=== PATIENT | female | born 1990 | race Caucasian/White ===

== ENCOUNTER 2020-04-06 14:35 | Outpatient (CLI) | payer OTHER, MEDICAID, SELFPAY ==
[2020-04-06 15:50] LABS: HCG Quant, Pregnancy 3395 mIU/mL (1-3)
== END 2020-04-06 14:55 ==
PROVIDERS: Visit Provider Obstetrics & Gynecology
DX: Z34.91 Encounter for supervision of normal pregnancy, unspecified, first trimester (principal)
CPT/HCPCS: 84702

== ENCOUNTER 2020-05-04 03:17 | Outpatient (CLI) | payer OTHER, MEDICAID, SELFPAY ==
[2020-05-04 16:15] LABS: Abs Immature Grans 0.01 k/cumm (0.0-0.09); Absolute Basophil Count 0.01 k/cumm (0.0-0.2); Absolute Eosinophil Count 0.02 k/cumm (0.0-0.7); Absolute Lymphocyte Count 1.74 k/cumm (1.2-3.4); Absolute Monocyte Count 0.41 k/cumm (0.11-0.7); Absolute Neutrophil Count 3.82 k/cumm (1.2-6.7); Basophils % 0.2; Eosinophils % 0.3; HCT 36.4 % (36.0-46.0); Immature Grans % 0.2 %; Mean Platelet Volume 10.4 fL (8.0-11.0); Monocytes % 6.8; Neutrophils % 63.5; Platelet Count 265 x1000/uL (130-400); RBC 4.09 m/cumm (4.00-5.20); White Blood Cell Count 6.01 k/cumm (4.4-10.8)
[2020-05-04 16:24] LABS: TSH (W/Ref FT4) 1.42 uIU/mL (0.36-3.74)
[2020-05-04 16:38] LABS: Mean Corp. HGB Concentration 38.5 g/dL (32.0-36.0); Mean Corpuscular Hemoglobin 34.2 pg (27.0-33.0)
[2020-05-05 10:01] LABS: Rubella IgG Ab (UVM) Positive (See Note); Varicella IgG Antibody Positive (See Note)
[2020-05-05 10:04] LABS: HIV-1/2 Ag & Ab Screen Negative (Negative)
[2020-05-05 10:58] LABS: Hepatitis C Ab w Rflx HCV PCR Negative (Negative)
[2020-05-05 13:34] LABS: Chlamydia Result Negative (Negative); GC Result Negative (Negative)
[2020-05-06 11:29] LABS: Syphilis Total Ab w/Reflex Nonreactive (Nonreactive)
== END 2020-05-04 03:37 ==
PROVIDERS: Visit Provider Advanced Practice Midwife
DX: Z34.91 Encounter for supervision of normal pregnancy, unspecified, first trimester (principal); Z3A.09 9 weeks gestation of pregnancy; Z11.59 Encounter for screening for other viral diseases; Z11.4 Encounter for screening for human immunodeficiency virus [HIV]; Z11.3 Encounter for screening for infections with a predominantly sexual mode of transmission
CPT/HCPCS: 36415; 86787; 86803; 86850; 86900; 86901; 87389; 87491; 87591; 84443; 85025; 86762; 86780

== ENCOUNTER 2020-05-04 18:38 | Outpatient (REF) | payer OTHER, MEDICAID, SELFPAY ==
[2020-05-04 18:42] LABS: *AMPHETAMINES SCREEN URINE Negative (Negative); *BARBITURATES SCREEN URINE Negative (Negative); *BENZODIAZEPINES SCREEN URINE Negative (Negative); Cannabinoids THC Negative (Negative); Cocaine Screen,Urine Negative (Negative); METHADONE URINE SCREEN Negative (Negative); OPIATES URINE SCREEN Negative (Negative)
[2020-05-04 18:44] LABS: Tricyclic Antidepressants Negative (Negative)
[2020-05-11 12:28] LABS: Buprenorphine Negative; Norbuprenorphine Negative
== END 2020-05-04 18:58 ==
LOC: LBN 18:38
PROVIDERS: PCP Advanced Practice Midwife; Visit Provider Advanced Practice Midwife
DX: Z34.91 Encounter for supervision of normal pregnancy, unspecified, first trimester (principal); Z3A.09 9 weeks gestation of pregnancy
CPT/HCPCS: 80307; 87086

== ENCOUNTER 2020-07-05 01:48 | Outpatient (CLI) | payer MEDICAID, SELFPAY ==
[2020-07-06 09:33] LABS: Hepatitis B Surface Ag Negative (Negative)
== END 2020-07-05 02:08 ==
PROVIDERS: PCP Advanced Practice Midwife; Visit Provider Advanced Practice Midwife
DX: Z34.91 Encounter for supervision of normal pregnancy, unspecified, first trimester (principal); Z3A.09 9 weeks gestation of pregnancy
CPT/HCPCS: 36415; 87340

== ENCOUNTER 2020-07-07 00:37 | Outpatient (CLI) | payer MEDICAID, SELFPAY ==
--- NOTE | 2020-07-07 06:00 | DI.US_ITS ---
EXAM: US OB 2-3 TRIMESTER CLINICAL HISTORY: routine pnc,o26.92. TECHNIQUE: Transabdominal obstetrical ultrasound performed. COMPARISON: No exams were available for comparison FINDINGS:: Number of fetuses: One. position: Variable Placental location: Anterior. No evidence of previa. BIOMETRIC DATA: BPD: 41 mm = 18+ 3 weeks HC: 158mm = 18+ 5 weeks AC: 132mm = 18+ 5 weeks FL: 27 mm = 18+ 1 weeks EFW: 243 Gms = 77% Composite Age: 18+ 4 EDC: 04 December 2020 Heart Rate: 150BPM Amniotic fluid : Amount of fluid is within normal limits. No abnormalities are identified. IMPRESSION: survey is within normal limits. DATA REPOSITORY:
== END 2020-07-07 00:57 ==
PROVIDERS: PCP Advanced Practice Midwife; Visit Provider Advanced Practice Midwife
DX: Z34.92 Encounter for supervision of normal pregnancy, unspecified, second trimester (principal)
CPT/HCPCS: 76805

== ENCOUNTER 2020-07-15 03:49 | Outpatient (CLI) | payer MEDICAID, SELFPAY ==
[2020-07-22 12:45] LABS: Result Summary NEGATIVE; Specimen WB Whole Blood
== END 2020-07-15 04:09 ==
PROVIDERS: Visit Provider Advanced Practice Midwife
DX: Z34.92 Encounter for supervision of normal pregnancy, unspecified, second trimester (principal); Z36.89 Encounter for other specified antenatal screening
CPT/HCPCS: 36415; 81220

== ENCOUNTER 2020-08-26 13:28 | Outpatient (CLI) | payer BC, MEDICAID, SELFPAY ==
[2020-08-26 13:48] LABS: HCT 34.4 % (36.0-46.0); HGB 12.6 g/dL (11.2-15.7); MCH 34.2 pg (27.0-33.0); MCHC 36.6 % (32.0-36.0); MCV 93.5 fL (80-95); Platelet Count 195 10^3/uL (130-400); RBC 3.68 10^6/uL (3.93-5.22); RDW 12.3 % (11.7-14.6); RDW-SD 41.9 fL; WBC 6.49 10^3/uL (4.4-10.8)
[2020-08-26 14:28] LABS: ALT 28 U/L (14-59); AST 26 U/L (15-37); Albumin 3.2 g/dL (3.4-5.0); Alkaline Phosphatase 45 U/L (46-116); Anion Gap 9.9 mmol/L (3-11); BUN 7 mg/dL (7-18); Bilirubin, Total 0.4 mg/dL (0.2-1.0); CO2 22.1 mmol/L (21.0-32.0); CREATININE 0.47 mg/dL (0.55-1.02); Calcium 8.8 mg/dL (8.5-10.1); Chloride 103 mmol/L (98-107); Glucose 98 mg/dL (74-106); Potassium 3.7 mmol/L (3.5-5.1); Sodium 135 mmol/L (136-145); Total Protein 6.5 g/dL (6.4-8.2); Uric Acid 3.8 mg/dL (2.6-6.0)
[2020-08-26 14:41] LABS: PROTEIN 12.8 mg/dL
[2020-08-26 14:42] LABS: COMMENT (LAB VIEW ONLY) 99.69 mg/dL; Prot/Crea Ur Ratio 0.12
== END 2020-08-26 13:48 ==
PROVIDERS: Visit Provider Advanced Practice Midwife
DX: O14.03 Mild to moderate pre-eclampsia, third trimester (principal)
CPT/HCPCS: 36415; 80053; 85027; 82565; 84156; 84550

== ENCOUNTER 2020-09-09 14:53 | Outpatient (CLI) | payer BC, MEDICAID, SELFPAY ==
[2020-09-09 15:07] LABS: HCT 34.4 % (36.0-46.0); HGB 12.8 g/dL (11.2-15.7); MCH 34.3 pg (27.0-33.0); MCHC 37.2 % (32.0-36.0); MCV 92.2 fL (80-95); MPV 10.5 fL (8.0-11.0); Platelet Count 187 10^3/uL (130-400); RBC 3.73 10^6/uL (3.93-5.22); RDW 12.2 % (11.7-14.6); RDW-SD 40.7 fL; WBC 7.73 10^3/uL (4.4-10.8)
[2020-09-09 15:14] LABS: Glucose,1 Hr (Glucola) 144 mg/dL (80-140)
== END 2020-09-09 15:13 ==
PROVIDERS: Visit Provider Advanced Practice Midwife
DX: O26.893 Other specified pregnancy related conditions, third trimester (principal); Z67.91 Unspecified blood type, Rh negative; Z34.93 Encounter for supervision of normal pregnancy, unspecified, third trimester
CPT/HCPCS: 36415; 82950; 85027; 86850; 90384

== ENCOUNTER 2020-09-16 02:04 | Outpatient (CLI) | payer BC, MEDICAID, SELFPAY ==
[2020-09-16 13:47] LABS: Glucose 1 Hour 142 mg/dL
[2020-09-16 15:55] LABS: Glucose 3 Hour 72 mg/dL
== END 2020-09-16 02:24 ==
PROVIDERS: Visit Provider Advanced Practice Midwife
DX: O99.810 Abnormal glucose complicating pregnancy (principal)
CPT/HCPCS: 36410; 82951

== ENCOUNTER 2020-10-26 09:55 | Outpatient (CLI) | payer BC, MEDICAID, SELFPAY ==
[2020-10-27 19:23] LABS: COVID-19 RT-PCR UVMMC Result Negative (Negative)
== END 2020-10-26 10:15 ==
PROVIDERS: Visit Provider Advanced Practice Midwife
DX: Z03.818 Encounter for observation for suspected exposure to other biological agents ruled out (principal)
CPT/HCPCS: U0003

== ENCOUNTER 2020-11-02 11:18 | Outpatient (REF) | payer BC, MEDICAID, SELFPAY ==
[2020-11-02 12:32] LABS: *AMPHETAMINES SCREEN URINE Negative (Negative); *BARBITURATES SCREEN URINE Negative (Negative); *BENZODIAZEPINES SCREEN URINE Negative (Negative); Cannabinoids THC Negative (Negative); Cocaine Screen,Urine Negative (Negative); METHADONE URINE SCREEN Negative (Negative); OPIATES URINE SCREEN Negative (Negative)
[2020-11-02 12:33] LABS: Tricyclic Antidepressants Negative (Negative)
[2020-11-10 16:37] LABS: Buprenorphine Negative
== END 2020-11-02 11:38 ==
LOC: LBN 11:18
PROVIDERS: Visit Provider Advanced Practice Midwife
DX: Z34.93 Encounter for supervision of normal pregnancy, unspecified, third trimester (principal); Z36.85 Encounter for antenatal screening for Streptococcus B; Z3A.36 36 weeks gestation of pregnancy
CPT/HCPCS: 80307; 87081

== ENCOUNTER 2020-12-09 07:19 | Outpatient (CLI) | payer BC, MEDICAID, SELFPAY ==
[2020-12-09 13:02] VITALS: BP 140/82; PULSE 75; TEMP 37
--- NOTE | 2020-12-09 15:19 | W.OBNST ---
Date of service: 12/09/20 Time of Service: 15:23 NST Evaluation Reason for NST Reasons for Nonstress Test: POSTDATES Gestational Age Gestational Age in Weeks and Days: 40 Weeks and 6Days Test and Monitor Explained Test/Monitor Explained: Test Explained, Monitor Explained and Patient Verbalized Understanding Vital Signs Blood Pressure: 140/82 Pulse: 75 Temperature: 98.6 F NST Information Date on Monitor: 12/09/20 Time on Monitor: 13:05 Date off Monitor: 12/09/20 Time off Monitor: 14:46 Total Time on Monitor: 101 NST Interventions: PO Hydration NST Evaluation Patient States Movement: Present FHR Baseline: 140 Variability: Moderate 6-25 bpm Accelerations: 10x10 Decelerations: None NST Results: Questionable Note GALLITO Results of GALLITO: low nml fluid at 6.9 and Presentation Presentation Results: cephalic, LOP NST Note Note: pt to return this evening for IOL via cervical ripening NST Reviewed and Verified by: Kendra Campbell
[2020-12-09 15:24] VITALS: BP 140/82; PULSE 75; TEMP 37
== END 2020-12-09 15:09 | disposition home or self-care (01) ==
LOC: BCD 07:22 → OBS 13:00
PROVIDERS: Visit Provider Advanced Practice Midwife
DX: O48.0 Post-term pregnancy (principal); Z3A.40 40 weeks gestation of pregnancy
CPT/HCPCS: 59025; 76815

== ENCOUNTER 2020-12-09 15:26 | Inpatient (IN) | payer BC, MEDICAID, SELFPAY ==
--- NOTE | 2020-12-09 19:31 | W.PM.OBHPL1 ---
Date of service: 12/09/20 Time of Service: 19:31 Assessment and Plan Assessment and plan (1) Post-dates : Status: Acute Assessment and plan: A: Primipara, 41 wks, GALLITO 6.9 today with equivocal NST result GBS negative; Rh neg, rec'ed RhoGam @ 28 wks Low risk for SD and PPH Hx anxiety, treated with meds 3 hr GTT at 29 wks was nml x4 after elevated 1 hr glucola Pt hoping for unmedicated delivery, has been counseled on risk for C/S P: Admit to for IOL via cervical ripening Informed consent reviewed with pt and CBC, T&S, COVID swab Begin misoprostel protocol Dr. Carlisle available for consult Qualifiers: Post-term type: 40-42 weeks gestation Qualified Code(s): O48.0 - Post-term OB-HPI Labor/Delivery History of Present Illness Reason for Visit: POSTDATES Chief Complaint: Scheduled Induction of Labor Indication for Induction: Post Date; Other (41 weeks, equivocal NST earlier today, GALLITO 6.9). RAULITO Calculator Estimated Delivery Date Method Current WG Current Estimate 12/03/20 LMP (Certain) 40w 6d Other Estimates 12/08/20 Ultrasound #1 40w 1d History of Present Expected Delivery Route/Plan - CNM FOB/ - Lennox Choe (his first child) Does not want to know gender; yes circ if male Interested in using the tub GBS negative Specific Issues/Plan 1. Undecided if desires [place], will inform of decision after speaking w/ 1a. Declines [place] and quad screen 2. Desires CF testing, PA req sent ([facility]). PA not required for CF, can draw at next opportunity 2a. CF testing ordered 06/02, result is carrier screen negative 3. Pt was born by C/S, her mother had C/S x3red 4. Hx anxiety, takes Prozac 40 mg qd 5. Rh neg, RhoGam @ 28 wks, done 6. 09/09/20 gct 144; 3 hr GTT completed and nml x4 7. Pt desires LC consult after 36 wks. Done 11/10 8. Insomnia - takes unisom daily.. Review of Systems All systems reviewed & are unremarkable except as noted in HPI and below Constitutional Constitutional: Reports system reviewed and no additional complaints, except as documented Eyes Eyes: Reports system reviewed and no additional complaints, except as documented ENT Ears, Nose, Mouth, and Throat: Reports system reviewed and no additional complaints, except as documented Cardiovascular Cardiovascular: Reports system reviewed and no additional complaints, except as documented Respiratory Respiratory: Reports system reviewed and no additional complaints, except as documented Gastrointestinal Gastrointestinal: Reports system reviewed and no additional complaints, except as documented Genitourinary Genitourinary: Reports system reviewed and no additional complaints, except as documented Musculoskeletal Musculoskeletal: Reports system reviewed and no additional complaints, except as documented Integumentary/Breasts Skin/Breast: Reports system reviewed and no additional complaints, except as documented Neurologic Neurologic: Reports system reviewed and no additional complaints, except as documented Psychiatric Psychiatric: Reports system reviewed and no additional complaints, except as documented Endocrine Endocrine: Reports system reviewed and no additional complaints, except as documented Allergic/Immunologic Allergic/Immunologic: Reports system reviewed and no additional complaints, except as documented [facility] Medical History (Updated 12/09/20 @ 19:34 by Kendra Campbell) Early stage of Social History Smoking/Tobacco Use Status: Never Smoking risk assessment performed?: Yes Alcohol Intake: former Drug use: Never Substance use type: does not use History History 1 Para 0 Hx # Term Pregnancies 0 Multiple births 0 Hx # Pregnancies 0 Ectopic pregnancies 0 AB induced 0 Hx Number of Living Children 0 AB spontaneous 0 Meds Home Medications and Allergies Home Medications Medication Instructions Recorded Confirmed Type fluoxetine 40 mg capsule 40 mg PO DAILY #90 cap 04/06/20 12/06/20 Rx prenat.vits,bj,uhm-rehv-kndxn 1 tab PO DAILY 05/04/20 12/06/20 History diphenhydramine HCl 25 mg 25 mg PO QHS PRN 07/29/20 12/06/20 History disintegrating tablet Allergies Allergy/AdvReac Type Severity Reaction Status Date / Time No Known Allergies Allergy Verified 12/06/20 11:29 Exam Physical Exam Vital signs: BP 126/73, P 81, Temp 98.4 Vital Signs Reviewed: Yes Constitutional Constitutional: no acute distress, average body habitus and cooperative Detailed Labor and Delivery Exam Dilation: 0.5 Effacement (%): 75 station: -2 Position: LOP Cervix position: posterior Consistency: firm LEE Score(Cervical Ripeness Score): 4 Amniotic Membrane Status: Intact Monitor Mode: External Contraction Frequency(min): none Fetus A Heart Rate Baseline: 140 Monitor Accelerations: 10 X 10 Monitor Decelerations: None Variability: Moderate (6-25 BPM) Presentation: Cephalic Categories: Category I Est. Weight: 7 lb 14.986 oz Est. Weight: 3600 gms HEENT Exam HEENT Exam: Normal Neck Exam Neck Exam: Normal Chest/Brest/Axilla Exam Chest Exam: Normal Breast Exam Breast Exam: Normal Respiratory Exam Respiratory Exam: Normal Cardiovascular Exam Cardiovascular Exam: Normal Abdominal Exam Abdominal Exam: Normal (Gravid) Rectal Exam Rectal Exam: Not Done Exam Exam: Normal Extremities Exam Extremities Exam: Normal Back/Spine/Pelvis Exam Back Exam: Normal Pelvis Adequate: Yes Skin Exam Skin Exam: Normal Neurological Exam Neurological Exam: Normal Psychiatric Exam Psychiatric Exam: Normal Results Results Group Beta Strep: Negative Blood Type: O- Rubella Status: Immune Varicella Immunity: Immune Risk Assessment Risk for Shoulder Dystocia Historical/Initial OB: NEGATIVE FOR: Pelvic Abnormality, Pre- BMI>30, Previous Shoulder Dystocia or Previous Macrosomia 40 Weeks: NEGATIVE FOR: EFW> 4500 gms, Maternal Weight Gain >40lb or Post Dates Increased Risk?: No Date/Initial: 11/10/20 al Delivery Plan @ 36wks: 11/10/20 al Delivery Plan @ 40 wks: , IOL at 41+ wks Risk for Pre-Eclampsia Daily Dose ASA Indicated: No Date Initiated/Initials: 05/04/20 jk Yes, if one or more: NEGATIVE FOR: Hx Pre-E/Gest HTN, Chronic HTN, Multiple Gestation, Pre-gestational DM, Renal Disease, Systemic Lupus or APA Syndrome Yes, if 2 or more: POSITIVE FOR: Nulliparity; NEGATIVE FOR: Age>= 35 yrs, >10yr btwn pregnancies, BMI>30, ethinicty, Mother/Sister w/ Pre-E or Previous IUGR Risk for Post- Hemorrhage Initial: NEGATIVE FOR: Multiple Gestation, Previous PPH, Known Clotting Deficiency, Grand Multiparity or Anticoagulation At Risk?: No Risks Reviewed Risks Reviewed Upon Admission: Yes
[2020-12-09 19:42] VITALS: BP 126/73; PULSE 81; RESP 16; TEMP 36.9
[2020-12-09 19:45] VITALS: BP 126/73; PULSE 81; TEMP 36.9
[2020-12-09] MEDS: miSOPROStol 25 MCG TAB 50 MCG PO (20:06)
[2020-12-09 20:18] LABS: HCT 36.4 % (36.0-46.0); HGB 13.4 g/dL (11.2-15.7); MCHC 36.8 % (32.0-36.0); MPV 11.1 fL (8.0-11.0); Platelet Count 169 10^3/uL (130-400); RBC 3.83 10^6/uL (3.93-5.22); RDW 12.1 % (11.7-14.6); RDW-SD 41.7 fL; WBC 9.25 10^3/uL (4.4-10.8)
[2020-12-09] MEDS: Zolpidem 5 MG TAB 10 MG PO (21:44)
[2020-12-10] VITALS (88 sets, daily range): BP systolic 107–170; BP diastolic 50–97; PULSE 68–105; RESP 16; TEMP 36.6–37.5; O2SAT 96–100
[2020-12-10] MEDS: Oxytocin/Normal Saline 30 UNIT/500 ML BAG 95 UNITS IV
[2020-12-10] MEDS: Acetaminophen 500 MG TAB 1000 MG PO (05:39)
--- NOTE | 2020-12-10 07:20 | W.PM.OBNL1 ---
Date of service: 12/10/20 Time of Service: 07:20 Informed Consent Informed Consent: Induction of Labor (misoprostel cervical ripening continues ) and Risk,Benefits,Alternatives Discussed Pelvic Exam Dilation: 1 Effacement (%): 80 station: -2 Position: LOP Cervix Position: mid Consistency: medium BISHOPS Score(Cervical Ripeness Score): 6 Vaginal Exam Presentation: Cephalic Contractions Monitor Mode: External Contraction Frequency(min): irregular, q 3-5 minutes Contraction Duration(sec): 40 - 60 seconds Intensity: Mild Fetus A Monitor: External (US) Heart Rate Baseline: 135 Presentation: Cephalic Variability: Moderate (6-25 BPM) Categories: Category I Accelerations: 15 X 15 Decelerations: None and Variable Amniotic Membrane Status: Intact Assessment Note: rare and nonrecurrent variable noted, for overall category 1 tracing Assessment and Plan Assessment and plan (1) Post-dates : Status: Acute Assessment and plan: A: Primipara, cervical ripening, latent phase labor P: 2nd misoprostel dose with breakfast this morning Consider cervical balloon, continue misoprostel protocol Handoff to SHAHAB Chester Dr. in-house and available for consult Qualifiers: Post-term type: 40-42 weeks gestation Qualified Code(s): O48.0 - Post-term Objective Abnormal lab results 12/09/20 Range/Units 20:08 RBC 3.83 L (3.93-5.22) 10^6/uL MCH 35.0 H (27.0-33.0) pg MCHC 36.8 H (32.0-36.0) % MPV 11.1 H (8.0-11.0) fL Temp Pulse Resp BP 98.2 F 68 16 131/79 12/10/20 02:29 12/10/20 07:17 12/10/20 02:29 12/10/20 07:17 Laboratory Results WBC 9.25 10^3/uL (4.4-10.8) 12/09/20 20:08 RBC 3.83 10^6/uL (3.93-5.22) L 12/09/20 20:08 Hgb 13.4 g/dL (11.2-15.7) 12/09/20 20:08 Hct 36.4 % (36.0-46.0) 12/09/20 20:08 MCV 95.0 fL (80-95) 12/09/20 20:08 MCH 35.0 pg (27.0-33.0) H 12/09/20 20:08 MCHC 36.8 % (32.0-36.0) H 12/09/20 20:08 RDW 12.1 % (11.7-14.6) 12/09/20 20:08 Plt Count 169 10^3/uL (130-400) 12/09/20 20:08 MPV 11.1 fL (8.0-11.0) H 12/09/20 20:08 Patient ABO/Rh O Negative 12/09/20 20:08 Antibody Screen Negative 12/09/20 20:08 Vital Signs Reviewed: Yes Objective Narrative Objective Narrative: Afebrile, normotensive FHT tracing overall category 1, nonrecurrent brief variable decel noted and not unexpected d/t GALLITO low/nml Pt calm and appearing comfortable, does breathe through contractions SVE for palpable cervical change to 1/80%, moving midpelvis and softening 1st miso dose given at 1999, all subsequent doses held d/t frequent contractions per toco Subjective Interval history since last seen: Pt rested as much as she could during the night and had taken an Ambien sleep aid but has been feeling contractions and backache since 229. Results Hemoglobin/Hematocrit: Hgb 13.4 g/dL (11.2-15.7) 12/09/20 20:08 Hct 36.4 % (36.0-46.0) 12/09/20 20:08 Abnormal Lab Findings: Abnormal Labs 12/09/20 20:08 RBC 3.83 L MCH 35.0 H MCHC 36.8 H MPV 11.1 H Procedure Procedures: Cervical Ripening Cervical Ripening: Misoprostol
[2020-12-10] MEDS: FLUoxetine 20 MG CAP 40 MG PO (07:40)
[2020-12-10] MEDS: miSOPROStol 25 MCG TAB 50 MCG PO (07:40)
[2020-12-10] MEDS: Lactated Ringers 500 ML IV (11:25)
--- NOTE | 2020-12-10 11:26 | W.PM.OBNL1 ---
Date of service: 12/10/20 Time of Service: 11:26 Informed Consent Informed Consent: Induction of Labor (misoprostel cervical ripening continues ) and Risk,Benefits,Alternatives Discussed Pelvic Exam Dilation: 2 Effacement (%): 90 station: +1 Cervix Position: posterior Consistency: soft Vaginal Exam Presentation: Cephalic Pooling: Positive ROM Plus: Positive Contractions Monitor Mode: None Contraction Frequency(min): every three minutes. Intensity: Moderate Fetus A Monitor: Doppler Heart Rate Baseline: 130 Presentation: Cephalic Variability: Moderate (6-25 BPM) Categories: Category I Accelerations: Present Decelerations: None Amniotic Membrane Status: Ruptured Date of Membrane Rupture: 12/10/20 Time of Membrane Rupture: 10:00 Assessment and Plan Assessment and plan (1) Encounter for induction of labor: Status: Acute Assessment and plan: Anesthesia was called for epidural analgesia. IV of LR prior to epidural, 500 cc bolus. Sherry is using position changes for comfort and is coping well with contractions. Anticipate . Objective Abnormal lab results 12/09/20 Range/Units 20:08 RBC 3.83 L (3.93-5.22) 10^6/uL MCH 35.0 H (27.0-33.0) pg MCHC 36.8 H (32.0-36.0) % MPV 11.1 H (8.0-11.0) fL Temp Pulse Resp BP 98.2 F 77 16 142/74 H 12/10/20 02:29 12/10/20 10:57 12/10/20 02:29 12/10/20 10:57 Laboratory Results WBC 9.25 10^3/uL (4.4-10.8) 12/09/20 20:08 RBC 3.83 10^6/uL (3.93-5.22) L 12/09/20 20:08 Hgb 13.4 g/dL (11.2-15.7) 12/09/20 20:08 Hct 36.4 % (36.0-46.0) 12/09/20 20:08 MCV 95.0 fL (80-95) 12/09/20 20:08 MCH 35.0 pg (27.0-33.0) H 12/09/20 20:08 MCHC 36.8 % (32.0-36.0) H 12/09/20 20:08 RDW 12.1 % (11.7-14.6) 12/09/20 20:08 Plt Count 169 10^3/uL (130-400) 12/09/20 20:08 MPV 11.1 fL (8.0-11.0) H 12/09/20 20:08 Patient ABO/Rh O Negative 12/09/20 20:08 Antibody Screen Negative 12/09/20 20:08 Subjective Interval history since last seen: Sherry slept intermittently after receiving ambien PO. She received second misoprostol dose at 0740. She began experiencing strong regular contractions. She requested an epidural for pain relief at 1030. She declines nitrous oxide or tub use. Results Hemoglobin/Hematocrit: Hgb 13.4 g/dL (11.2-15.7) 12/09/20 20:08 Hct 36.4 % (36.0-46.0) 12/09/20 20:08 Abnormal Lab Findings: Abnormal Labs 12/09/20 20:08 RBC 3.83 L MCH 35.0 H MCHC 36.8 H MPV 11.1 H
[2020-12-10] MEDS: FentaNYL/ROPIvacaine 2 mcg/ml and 0.1% 200 ML CADD Cassette EP (12:23)
[2020-12-10] MEDS: Lactated Ringers 1,000 ML 125 ML IV (13:00)
--- NOTE | 2020-12-10 15:15 | W.PM.OBNL1 ---
Date of service: 12/10/20 Time of Service: 15:15 Informed Consent Informed Consent: Induction of Labor (misoprostel cervical ripening continues ) and Risk,Benefits,Alternatives Discussed Pelvic Exam Dilation: 8 Effacement (%): 100 station: +2 Cervix Position: anterior Consistency: soft Vaginal Exam Presentation: Cephalic Pooling: Positive Contractions Monitor Mode: External Contraction Frequency(min): 3 Contraction Duration(sec): 60 Intensity: Strong Fetus A Monitor: External (US) Heart Rate Baseline: 130 Presentation: Cephalic Variability: Moderate (6-25 BPM) FHR Rhythm: Regular Characteristics: Normal Accelerations: 15 X 15 Decelerations: Variable Recurrence: Intermittent Amniotic Membrane Status: Ruptured Amniotic Fluid: Meconium Assessment and Plan Assessment and plan (1) Encounter for induction of labor: Status: Acute Assessment and plan: Reviewed signs of full dilation. Continues to leak small amounts of light meconium stained fluid. Anticipate . Objective Abnormal lab results 12/09/20 Range/Units 20:08 RBC 3.83 L (3.93-5.22) 10^6/uL MCH 35.0 H (27.0-33.0) pg MCHC 36.8 H (32.0-36.0) % MPV 11.1 H (8.0-11.0) fL Temp Pulse Resp BP Pulse Ox 97.9 F 83 16 118/63 99 12/10/20 12:39 12/10/20 15:12 12/10/20 02:29 12/10/20 15:00 12/10/20 15:12 Laboratory Results WBC 9.25 10^3/uL (4.4-10.8) 12/09/20 20:08 RBC 3.83 10^6/uL (3.93-5.22) L 12/09/20 20:08 Hgb 13.4 g/dL (11.2-15.7) 12/09/20 20:08 Hct 36.4 % (36.0-46.0) 12/09/20 20:08 MCV 95.0 fL (80-95) 12/09/20 20:08 MCH 35.0 pg (27.0-33.0) H 12/09/20 20:08 MCHC 36.8 % (32.0-36.0) H 12/09/20 20:08 RDW 12.1 % (11.7-14.6) 12/09/20 20:08 Plt Count 169 10^3/uL (130-400) 12/09/20 20:08 MPV 11.1 fL (8.0-11.0) H 12/09/20 20:08 Patient ABO/Rh O Negative 12/09/20 20:08 Antibody Screen Negative 12/09/20 20:08 Subjective Patient Reports: No new Complaints Interval history since last seen: Resting comfortably with epidural. Results Hemoglobin/Hematocrit: Hgb 13.4 g/dL (11.2-15.7) 12/09/20 20:08 Hct 36.4 % (36.0-46.0) 12/09/20 20:08 Abnormal Lab Findings: Abnormal Labs 12/09/20 20:08 RBC 3.83 L MCH 35.0 H MCHC 36.8 H MPV 11.1 H Procedure Procedures: Other (straight catherterized for 250 cc slightly concentrated yellow urine. )
[2020-12-10] MEDS: Oxytocin/Normal Saline 30 UNIT/500 ML BAG 2 UNITS IV (18:34)
[2020-12-10] MEDS: Oxytocin/Normal Saline 30 UNIT/500 ML BAG 4 UNITS IV (19:14)
--- NOTE | 2020-12-10 19:32 | PGE_ITS ---
Date of service: 12/10/20 Time of Service: 19:32 Informed Consent Informed Consent: Induction of Labor (misoprostel cervical ripening continues ) and Risk,Benefits,Alternatives Discussed Pelvic Exam Dilation: 10 station: +2 Position: LOP Fetus A Monitor: External (US) Presentation: Vertex Variability: Moderate (6-25 BPM) Categories: Category II Characteristics: Normal Accelerations: 15 X 15 Decelerations: Variable Recurrence: Intermittent Amniotic Membrane Status: Ruptured Assessment Note: moderate meconium stained fluid. Assessment and Plan Assessment and plan (1) Encounter for induction of labor: Status: Acute Assessment and plan: At this time, will continue pitocin augmentation and allow Sherry to rest. She was assisted to side-lying position. Will plan to assist with pushing when she has more urge to push. Dr. Carlisle is on the unit and is aware of this plan. Objective Abnormal lab results 12/09/20 Range/Units 20:08 RBC 3.83 L (3.93-5.22) 10^6/uL MCH 35.0 H (27.0-33.0) pg MCHC 36.8 H (32.0-36.0) % MPV 11.1 H (8.0-11.0) fL Temp Pulse Resp BP Pulse Ox 99.3 F 88 16 126/66 100 12/10/20 19:13 12/10/20 19:30 12/10/20 02:29 12/10/20 19:30 12/10/20 17:27 Laboratory Results WBC 9.25 10^3/uL (4.4-10.8) 12/09/20 20:08 RBC 3.83 10^6/uL (3.93-5.22) L 12/09/20 20:08 Hgb 13.4 g/dL (11.2-15.7) 12/09/20 20:08 Hct 36.4 % (36.0-46.0) 12/09/20 20:08 MCV 95.0 fL (80-95) 12/09/20 20:08 MCH 35.0 pg (27.0-33.0) H 12/09/20 20:08 MCHC 36.8 % (32.0-36.0) H 12/09/20 20:08 RDW 12.1 % (11.7-14.6) 12/09/20 20:08 Plt Count 169 10^3/uL (130-400) 12/09/20 20:08 MPV 11.1 fL (8.0-11.0) H 12/09/20 20:08 Patient ABO/Rh O Negative 12/09/20 20:08 Antibody Screen Negative 12/09/20 20:08 Subjective Interval history since last seen: Sherry had good effect from epidual. I plac ed an IUPC at 9 cms which was not reading contractions strength well so it was removed. She progressed to full dilation, and had a slight urge to push. She began pushing well in various positions with no descent of vertex. Pitocin augmentation was started after 1 hour of pushing due to spacing of the contractions and mild to palpation. She pushed for another hour and there was a small amount of descent. Results Hemoglobin/Hematocrit: Hgb 13.4 g/dL (11.2-15.7) 12/09/20 20:08 Hct 36.4 % (36.0-46.0) 12/09/20 20:08 Abnormal Lab Findings: Abnormal Labs 12/09/20 20:08 RBC 3.83 L MCH 35.0 H MCHC 36.8 H MPV 11.1 H
--- NOTE | 2020-12-10 20:55 | GCONE_ITS ---
Date of service: 12/10/20 Time of Service: 20:55 Assessment and Plan Assessment and plan (1) Post-dates : Status: Acute Qualifiers: Post-term type: 40-42 weeks gestation Qualified Code(s): O48.0 - Post-term (2) Rh negative status during in third trimester: Status: Acute (3) Abnormality of labor: Status: Acute Assessment and plan: Patient has had good maternal effort and Pitocin augmentation of her labor, however has little to no descent of the vertex in the second stage. If no descent after the next half hour of pushing with reassuring status, will proceed to section. Patient understands the risks and benefits. History of Present Illness History of Present Illness Chief Complaint: Arrest of descent Narrative: Patient is a 30-year-old female 1 para 0 at 41 weeks gestation. She had care by her head sawyer automatic service. She was admitted to hospital for cervical ripening and labor induction due to postdates, questionable surveillance and oligohydramnios. She received 2 doses of misoprostol for cervical ripening. She subsequently had onset of spontaneous labor thereafter. She did receive epidural for pain control and had spontaneous rupture of membranes for meconium-stained fluid. I was called to evaluate the patient this evening after she had approximately 2 hours of pushing with good maternal effort and no descent into the pelvis. At that time pushing was discontinued, position was changed, Pitocin augmentation started per the head sawyer automatic. Electronic scalp lead was placed for continuous monitoring of the baby throughout the pushing process and she had another approximately 1/2- hour of pushing in the knee-chest position. By my exam, she had been complete, vertex in the left occiput posterior position with minimal caput or molding.. We suggested another attempt at pushing in the knee-chest position after her rest to see if we could get either rotational force or descent. In the interval, we did discuss the possibility of operative delivery by c esarean section. The risks, benefits, alternatives of the procedure had been explained to the patient including risk of infection, bleeding, injury to the surrounding organs, risk of anesthesia, risk of thromboembolism. She will be reevaluated shortly to ascertain any amount of descent. If there is none, will proceed to section. Both patient and her are understanding of this and agreed to the plan Consults Consult date: 12/10/20 Requesting physician: Alem Chester Review of Systems All systems reviewed & are unremarkable except as noted in HPI and below Cardiovascular Cardiovascular: Reports system reviewed and no additional complaints, except as documented Respiratory Respiratory: Reports system reviewed and no additional complaints, except as documented Genitourinary Genitourinary: Reports system reviewed and no additional complaints, except as documented [facility] Medical History Early stage of Social History Smoking/Tobacco Use Status: Never Smoking risk assessment performed?: Yes Alcohol Intake: former Drug use: Never Substance use type: does not use History History 1 Para 0 Hx # Term Pregnancies 0 Multiple births 0 Hx # Pregnancies 0 Ectopic pregnancies 0 AB induced 0 Hx Number of Living Children 0 AB spontaneous 0 Exam Const General: cooperative, healthy appearing and comfortable Nutritional Appearance: average body habitus Orientation: alert and oriented x3 Eyes General: appearance normal, both eyes and all related structures Resp Effort & Inspection: normal respiratory effort Cardio Rate: regular rate Other: Cervix is completely dilated, vertex is in the +1 station, right occiput posterior position. The pelvis appears adequate, there is a flattened anterior posterior component which may be precursor to the persistent occiput posterior position where feeling today. Skin General skin exam: no rashes or lesions noted Neuro General: patient alert and patient oriented x3 Cognition: normal cognition Motor: muscle tone normal throughout Results Last Vital Signs Temp 99.5 F 12/10/20 19:58 Pulse 104 H 12/10/20 20:43 Resp 16 12/10/20 02:29 BP 129/60 12/10/20 20:43 Pulse Ox 100 12/10/20 17:27 Labs Result diagrams: 12/09/20 20:08
--- NOTE | 2020-12-10 21:16 | W.PM.PROGNOT ---
Date of Service Date of service: 12/10/20 Time of Service: 21:16 Assessment and Plan Assessment and plan (1) Abnormality of labor: Status: Acute Assessment and plan: Arrest of descent. Proceed to C/S Subjective Subjective Interval history since last seen: No changes in postition. Category 1 strip. Will proceed to OR for primary section. Objective Last Vital Signs Temp 99.5 F 12/10/20 19:58 Pulse 104 H 12/10/20 20:43 Resp 16 12/10/20 02:29 BP 129/60 12/10/20 20:43 Pulse Ox 100 12/10/20 17:27
[2020-12-10] MEDS: AZITHROMYCIN 500 MG in Normal Saline 250 ML 250 MG IVPB (21:35)
[2020-12-10] MEDS: Sodium Citrate 30 ML CUP PO (21:36)
[2020-12-10] MEDS: Lactated Ringers 1,000 ML 200 ML IV (21:54)
[2020-12-10] MEDS: ceFAZolin 2 GM/50 ML BAG IVPB (21:55)
[2020-12-10] MEDS: Bupivacaine 0.25% Pres-Free 30 ML VIAL (22:27)
[2020-12-10] MEDS: Bupivacaine LIPOSOME/PF 133 MG/10 ML VIAL IJ (22:28)
--- NOTE | 2020-12-10 23:05 | PLAC_PTH ---
PATIENT: Sherry Dorsey LOC: OBS U#:[id number] AGE/SX: 30/F ROOM: OBS.304 RE12/09/[address]: Kallie Campbell CNM : 1990 BED: A DIS: 12/12/2020 SPEC #: [id number] RECD: 12/12/20 11:58 STATUS: MICH REQ #: [id number] DENISHA: 12/10/20 23:[address]: Patricia Carlisle DEPT: Surgical Specimen RECD BY: Dania Banerjee ENTERED: 12/12/20 12:01 SP TYPE: PLAC OTHR DR: Kallie Campbell CNM Tissues: 1 - PLACENTA (3RD TRIMESTER) Procedures: GROSS AND MICRO LEVEL 5 Comments: [id number]
--- NOTE | 2020-12-10 23:48 | W.PM.OBCSECT ---
Date of service: 12/10/20 Time of Service: 23:48 Operative Note Operative Note Delivery Method: Unscheduled Category: Urgent DATE OF PROCEDURE: 12/10/20 PRE-OP DIAGNOSES: at 41 weeks, failed induction, arrest of descent POST-OP DIAGNOSES: same Same with persistent occiput posterior, impacted left shoulder PROCEDURE: Primary low transverse section SURGEON: Patricia Carlisle Assisting Surgeon: Alem Chester Anesthesia: local and epidural Estimated blood loss (mL): 500 Pathology: other (Placenta, cord blood gases, cord blood sample) Complications: None Patient was transported to: floor Patient's condition: stable Indications: Arrest of descent, persistent occiput posterior Findings: Normal tubes, ovaries, uterus. Moderate placental adherence. Delivery of a viable male from the persistent occiput posterior position. Meconium stained fluid. Procedure Description: Patient is a 28-year-old female 1 para 0 who had care through [facility] with the supervisor cooler service group. At 41 weeks she was noted to have oligohydramnios and suspicious testing. For this reason she was admitted for labor induction. She initially received cervical ripening with misoprostol x2 doses. She went into spontaneous labor thereafter. She received pain control with an epidural. She had previously spontaneous rupture of membranes from moderately meconium stained fluid. Unassisted she progressed to the point that she was completely dilated. She had had approximately 2 hours of pushing with good maternal effort with no descent. With no descent, she was allowed to rest, Pitocin augmentation of her labor have been undertaken and she resumed pushing after scalp electrode was placed. He was tolerating pushing, however made no further descent. I was asked to consult on the patient for recommendations. Risk benefits and alternatives of delivery have been explained to the patient previously in full informed consent was obtained. She was taken the operating suite with an IV running where epidural anesthesia was bolused, tested, and found to be adequate. She had a Saul catheter previously inserted. She was placed in the dorsal supine position with a leftward tilt. heart tones were found to be 130s after bolus of epidural. Vaginal prep was undertaken with Betadine, and vertex was displaced in a cephalad direction in order to assist in operative delivery. At this point attention was turned to the abdomen which had been prepped and draped in the usual sterile fashion. Pfannenstiel skin incision was was made and carried down to the underlying fascia. The fascia was nicked in the midline and fascial incision extended laterally. The rectus muscles were identified split in the midline superiorly and inferiorly. Patient did had exceedingly well-developed pyramidalis muscles. These were also split in the midline. Peritoneum was identified tented up and entered sharply and the peritoneal incision extended superiorly and inferiorly. At this point a DeLee bladder blade was inserted and the vesicouterine peritoneum identified tented up and entered sharply and bladder flap was created. A low transverse uterine incision was made and extended bluntly laterally. There is persistence of thickly meconium stained fluid. At time of the uterine incision baby was noted to be in the right occiput posterior position and with gentle cephalad traction the delivered vertex was delivered through the incision. There was noted to be impaction of the left shoulder to the left pubic symphysis, right shoulder had followed with ease. With gentle traction keeping head and neck in line left shoulder was delivered. Body followed with ease. Three-vessel cord was noted clamped x2 and cut and the infant was handed off to the waiting corrections officer. At this point cord blood gases cord blood sample were both obtained. Placenta was manually extracted from the uterus and noted to be densely adherent to the anterior uterine wall. In light of this, and the potential risk for bleeding second IV was started per anesthesia. At this point the uterus was exteriorized and cleared of any remaining clot and debris. Good tonicity was maintained. Bladder blade was reinserted allowing exposure of the lower uterine segment. Ring forceps were used to grasp the superior and inferior aspects of the incision as were the corners. With meticulous attention to the corners of the uterine incision the uterine incision was closed using 0 Monocryl suture in a running locked fashion. A second imbricating layer of 0 Monocryl suture was placed as well. At this point uterine incision was inspected and found to be hemostatic. Tubes and ovaries were also inspected and found to be hemostatic and the uterus was replaced into the abdomen. The abdomen was then irrigated with copious amounts of normal saline. Uterine incision was found to be hemostatic. At this point patient did have a significant amount of tenderness and pressure. Again the uterine incision was inspected and found to be hemostatic. The fascial incision was then closed using 0 Vicryl suture in a running fashion subcutaneous tissue irrigated with copious amounts of normal saline and the subcu space reapproximated with 3-0 Vicryl suture in a simple interrupted fashion. At this point 20 cc of Exparel and lidocaine were infiltrated into the subcu space down to the fascia to provide long-acting pain relief. Skin wound which was then reapproximated with 4-0 Monocryl suture in a subcuticular fashion. Steri-Strips and sterile dressing were placed. Uterus at this point was noted to be firm and 2 cm below the umbilicus. Patient was moved from the OR table back to her labor bed and returned to the floor. She had a Saul catheter in place draining clear yellow urine. Findings: 1. Normal tubes, ovaries, uterus 2. Delivery of viable male infant from the occiput posterior position with significant caput and impacted left shoulder at the pubic symphysis 3. Meconium stained fluid 4. Placenta moderately adherent to the anterior uterus EBL: 500 mL Pathology: Placenta for exam Complications: None apparent
[2020-12-11] VITALS (10 sets, daily range): BP systolic 108–140; BP diastolic 66–77; PULSE 80–100; RESP 16–20; TEMP 36.7–37; O2SAT 98–100
[2020-12-11] MEDS: miSOPROStol 100 MCG TAB 600 MCG PO ×2 (00:42→09:02)
[2020-12-11 00:48] LABS: COVID-19 RT-PCR UVMMC Result Negative (Negative)
[2020-12-11] MEDS: Ketorolac 30 MG/ML VIAL IVP ×3 (05:43→17:14)
[2020-12-11 07:27] LABS: Abs Immature Grans 0.06 10^3/uL (0.0-0.06); Absolute Basophil Count 0.02 10^3/uL (0.0-0.2); Absolute Lymphocyte Count 1.49 10^3/uL (1.2-3.4); Basophils % 0.1; HCT 33.5 % (36.0-46.0); HGB 12.4 g/dL (11.2-15.7); Immature Grans % 0.4; Lymphocytes % 9.7; MCH 34.9 pg (27.0-33.0); MCV 94.4 fL (80-95); MPV 11.2 fL (8.0-11.0); Monocytes % 5.6; Neutrophils % 84.2; Nucleated RBC 0 %; Platelet Count 151 10^3/uL (130-400); RBC 3.55 10^6/uL (3.93-5.22); RDW 12.1 % (11.7-14.6); RDW-SD 42.2 fL
[2020-12-11 07:39] LABS: Absolute Monocyte Count 0.86 10^3/uL (0.1-0.8); Absolute Neutrophil Count 12.97 10^3/uL (1.2-6.7)
--- NOTE | 2020-12-11 08:02 | W.PM.OBPNV1 ---
Date of service: 12/11/20 Time of Service: 08:02 Assessment and Plan Assessment and plan (1) Status post primary low transverse section: Status: Acute Assessment and plan: Post op day #1 s/p Primary low transverse section. Doing well. Increase activity. OK to shower. Routine post op care Subjective Subjective Interval history: Patient seen post op wade # 1. Doing well. Saul out. Wants to shower. Good pain control Patient comments: No complaints and Pain well controlled baby status: Doing well, Nursing well, Rooming in and Strong Bonding Observed [place] feeding status: Exclusively breast feeding Exam Physical Exam Vital signs: Temp Pulse Resp BP Pulse Ox 98.2 F 88 18 126/72 98 12/11/20 01:30 12/11/20 02:00 12/11/20 02:00 12/11/20 02:00 12/11/20 02:00 Constitutional Constitutional: no acute distress HEENT Exam HEENT Exam: Normal Respiratory Exam Respiratory Exam: Normal Cardiovascular Exam Cardiovascular Exam: Normal Abdominal Exam Abdomen: Other Comments: Abdomen soft. Dressing in place. Will remove in the shower Fundal Exam Fundus: Below Umbilicus and Firm Extremities Exam Extremity Exam: Normal; negative Calf Tenderness Skin Exam Skin Exam: Normal Neurological Exam Neurological Exam: Normal Psychiatric Exam Psychiatric Exam: Normal Results Hemoglobin/Hematocrit: Hgb 12.4 g/dL (11.2-15.7) 12/11/20 07:15 Hct 33.5 % (36.0-46.0) L 12/11/20 07:15 Abnormal Lab Findings: Abnormal Labs 12/09/20 12/11/20 20:08 07:15 WBC 15.40 H RBC 3.83 L 3.55 L Hct 33.5 L MCH 35.0 H 34.9 H MCHC 36.8 H 37.0 H MPV 11.1 H 11.2 H Absolute Neutrophils 12.97 H Absolute Monocytes 0.86 H
[2020-12-11] MEDS: FLUoxetine 20 MG CAP 40 MG PO (09:01)
[2020-12-11] MEDS: Acetaminophen 500 MG TAB 1000 MG PO (09:04)
[2020-12-11] MEDS: Docusate Sodium 100 MG CAP PO (09:05)
[2020-12-11] MEDS: Normal Saline Flush 10 ML SYR IVP ×2 (11:57→17:15)
[2020-12-11] MEDS: Acetaminophen 325 MG TAB 650 MG PO (16:13)
[2020-12-12] VITALS: BP 122/66; PULSE 82; RESP 16; TEMP 36.7; O2SAT 99
[2020-12-12] MEDS: Ketorolac 30 MG/ML VIAL IVP (00:02)
[2020-12-12] MEDS: Acetaminophen 325 MG TAB 650 MG PO ×2 (03:40→07:46)
[2020-12-12] MEDS: Ibuprofen 600 MG TAB PO ×2 (06:50→13:44)
[2020-12-12] MEDS: Docusate Sodium 100 MG CAP PO (07:45)
[2020-12-12] MEDS: FLUoxetine 20 MG CAP 40 MG PO (07:45)
[2020-12-12 07:48] VITALS: BP 122/84; PULSE 72; RESP 18; TEMP 36.5; O2SAT 98
--- NOTE | 2020-12-12 08:21 | OBPPV_ITS ---
Date of service: 12/12/20 Time of Service: 08: Assessment and Plan Assessment and plan (1) Status post primary low transverse section: Status: Acute Assessment and plan: Postoperative day #2 status post primary low transverse section. Doing well. Ambulating without difficulty. Breast-feeding well. Baby to be circumcised. Discussed Nexplanon for visit. Will be discharged home today. Follow-up in the office in 2 weeks Subjective Subjective Interval history: Patient seen postoperative day #1. Doing well. Desires discharge later today. Anticipates use of Nexplanon . Baby will have circumcision today. Discharge this afternoon if stable Patient comments: No complaints, Pain well controlled, Tolerating diet and Flatus present [place] baby status: Doing well and Nursing well [place] feeding status: Exclusively breast feeding Exam Physical Exam Vital signs: Temp Pulse Resp BP Pulse Ox 98.1 F 82 16 122/66 99 12/12/20 00:00 12/12/20 00:00 12/12/20 00:00 12/12/20 00:00 12/12/20 00:00 Constitutional Constitutional: no acute distress HEENT Exam HEENT Exam: Normal Respiratory Exam Respiratory Exam: Normal Cardiovascular Exam Cardiovascular Exam: Normal Abdominal Exam Abdomen: Tender Fundal Exam Fundus: Below Umbilicus and Firm Extremities Exam Extremity Exam: Normal; negative Calf Tenderness and Edema Neurological Exam Neurological Exam: Normal Psychiatric Exam Psychiatric Exam: Normal Results Hemoglobin/Hematocrit: Hgb 12.4 g/dL (11.2-15.7) 12/11/20 07:15 Hct 33.5 % (36.0-46.0) L 12/11/20 07:15 Abnormal Lab Findings: Abnormal Labs 12/09/20 12/11/20 20:08 07:15 WBC 15.40 H RBC 3.83 L 3.55 L Hct 33.5 L MCH 35.0 H 34.9 H MCHC 36.8 H 37.0 H MPV 11.1 H 11.2 H Absolute Neutrophils 12.97 H Absolute Monocytes 0.86 H
--- NOTE | 2020-12-12 08:28 | DSE_ITS ---
Date of service: 12/12/20 Time of Service: 08:28 DS: Diagnosis Discharge Diagnosis (1) Status post primary low transverse section: Status: Acute Discharge Plan Disposition Patient Disposition: HOME Condition: Good Discharge Details Reason For Visit: POSTDATES Admit Date/Time: 12/09/20 15:26 Admit Provider: Kendra Campbell Attending Provider: Kendra Campbell Primary Care Provider: Unknown,Unknown Hospital Course Hospital Course: Patient is a 28-year-old male now status post primary low transverse section. She is a 1 para 1. She had care through [facility] with reference librarian group. She was admitted for labor induction due to oligohydramnios and suspicious surveillance. She misoprostol x2 doses and progressed into spontaneous labor. She had spontaneous rupture of membranes for meconium-stained fluid and received epidural for pain control. She pushed for approximately 2 hours with noted descent, was rested, augmented and resumed pushing with again no descent. I was asked to see and evaluate the patient during the second stage due to arrest of descent. We discussed the risk benefits and alternatives of section where she went to primary section. She delivered a viable male infant in the persistent occiput posterior position with an impacted left shoulder underneath the pubic symphysis. The remainder of her postoperative course was uncomplicated. She was transitioned from parenteral pain medication and clear liquid diet to oral pain medication and regular diet. She is ambulating tolerating regular diet with normal bowel and bladder function. She is exclusively breast-feeding her son. She discharged home post operative day #2 Home Meds and New Rx's Prescriptions: New docusate sodium [Colace] 100 mg Capsule 100 mg PO BID PRN PRNQty: 30 RF: 0 ibuprofen [IBU] 600 mg Tablet 600 mg PO Q6H PRN PRNQty: 30 RF: 1 oxycodone-acetaminophen 5-325 mg Tablet 1 tab PO Q4H PRN PRNQty: 14 RF: 0 Continued fluoxetine [Prozac] 40 mg capsule 40 mg PO DAILY Qty: 90 RF: 3 prenat.vits,bj,nhn-uxxy-wglgf Tablet 1 tab PO DAILY RF: 0 Discontinued Unisom SleepMelts 25 mg tablet,disintegrating 25 mg PO QHS PRNRF: 0 Discharge Instructions Additional Instructions: Pelvic rest for 6 weeks. Follow-up with me in [facility] in 2 weeks. Stand Alone Forms: BC Discharge Instruc Activity:: Activity as Tolerated Equipment/Supplies:: No Equipment Needed Diet:: As Tolerated Discharge Orders Discharge Orders: Discharge Order (Routine); Ordered 12/12/20 Ordered By: Patricia Carlisle OB:DS Summary Summary Episiotomy Description: None Laceration Description: None Laceration Extension: N/A Contraception Discussed Contraception Discussed: Yes, Infant Gender-Baby A: Male weight: 7 lb 3.346 oz Status at Discharge Functional status at discharge: independent ambulation Overall status at discharge: patient is back to baseline Mental Status: mental status grossly normal Speech and Movement: speech and movement normal Mood: congruent mood Affect: normal affect Exam Physical Exam Vital signs: Temp Pulse Resp BP Pulse Ox 98.1 F 82 16 122/66 99 12/12/20 00:00 12/12/20 00:00 12/12/20 00:00 12/12/20 00:00 12/12/20 00:00 Constitutional Comments: See physical examination from progress note dated 12/12/2020 [facility] Medical History Early stage of Surgical History Status post primary low transverse section Social History Smoking/Tobacco Use Status: Never Smoking risk assessment performed?: Yes Alcohol Intake: former Drug use: Never Substance use type: does not use History History 1 Para 0 Hx # Term Pregnancies 0 Multiple births 0 Hx # Pregnancies 0 Ectopic pregnancies 0 AB induced 0 Hx Number of Living Children 0 AB spontaneous 0 DS: Data Vitals/I&O Vitals and I&O: Vital Signs Temperature 98.1 F 12/12/20 00:00 Temperature Source Oral 12/10/20 19:58 Pulse 82 12/12/20 00:00 Pulse Rhythm Regular 12/11/20 20:15 Respiratory Rate 16 12/12/20 00:00 Respiratory Depth Normal 12/09/20 19:42 Blood Pressure 122/66 12/12/20 00:00 Blood Pressure Mean 84 12/12/20 00:00 Pulse Oximetry 99 12/12/20 00:00 Oxygen Delivery Method Room Air 12/09/20 19:42 Oxygen Flow Rate 0 12/09/20 19:42 Pain Level 3 12/12/20 07:46 Intake & Output 12/11/20 12/11/20 12/12/20 11:59 23:59 11:59 Intake Total 2250 / 2250 Output Total 1050 / 1650 600 / 1650 Balance 1200 / 600 -600 / 600 Intake: IV 2250 / 2250 Output: Urine 1050 / 1650 600 / 1650 Other: Urine Color Light Sandra Urine Appearance Clear
[2020-12-12 13:49] VITALS: BP 135/86; PULSE 74; RESP 16; TEMP 36.5; O2SAT 97
== END 2020-12-12 16:00 | disposition home or self-care (01) | DRG 787 ==
PROVIDERS: Obstetrics & Gynecology; Admitting Provider Advanced Practice Midwife; Visit Provider Advanced Practice Midwife
PROC: 10D00Z1 Extraction of Products of Conception, Low, Open Approach (ICD-10-PCS; CPT 59514; principal; 2020-12-10 21:35)
DX: O48.0 Post-term pregnancy (principal); O36.0930 Maternal care for other rhesus isoimmunization, third trimester, not applicable or unspecified; Z37.0 Single live birth; Z3A.41 41 weeks gestation of pregnancy; O99.344 Other mental disorders complicating childbirth; F41.9 Anxiety disorder, unspecified; O62.1 Secondary uterine inertia; O77.0 Labor and delivery complicated by meconium in amniotic fluid; O73.0 Retained placenta without hemorrhage
CPT/HCPCS: 59514; 36415; 85027; 86850; 86900; 86901; 99232; 99252; U0003; 85025; 88307; J0456; J0690; J1885; J2370; J2405; J3490

== ENCOUNTER 2022-08-03 01:37 | Outpatient (CLI) | payer OTHER, SELFPAY ==
[2022-08-03 14:48] LABS: Abs Immature Grans 0.02 10^3/uL (0.0-0.06); Absolute Basophil Count 0.02 10^3/uL (0.0-0.2); Absolute Eosinophil Count 0.03 10^3/uL (0.0-0.7); Absolute Lymphocyte Count 1.68 10^3/uL (1.2-3.4); Absolute Monocyte Count 0.28 10^3/uL (0.1-0.8); Absolute Neutrophil Count 3.83 10^3/uL (1.2-6.7); Basophils % 0.3; Eosinophils % 0.5; HCT 34.6 % (36.0-46.0); HGB 12.7 g/dL (11.2-15.7); Immature Grans % 0.3; Lymphocytes % 28.7; MCH 32.7 pg (27.0-33.0); MCHC 36.7 % (32.0-36.0); MCV 89 fL (80-95); Monocytes % 4.8; Neutrophils % 65.4; Platelet Count 226 10^3/uL (130-400); RBC 3.88 10^6/uL (3.93-5.22); RDW 11.4 % (11.7-14.6); RDW-SD 36.9 fL; WBC 5.86 10^3/uL (4.4-10.8)
[2022-08-03 16:27] LABS: TSH (W/Ref FT4) 0.95 uIU/mL (0.36-3.74)
[2022-08-03 22:30] LABS: *AMPHETAMINES SCREEN URINE Negative (Negative); *BARBITURATES SCREEN URINE Negative (Negative); *BENZODIAZEPINES SCREEN URINE Negative (Negative); Cannabinoids THC Negative (Negative); Cocaine Screen,Urine Negative (Negative); METHADONE URINE SCREEN Negative (Negative); OPIATES URINE SCREEN Negative (Negative)
[2022-08-03 22:31] LABS: Tricyclic Antidepressants Negative (Negative)
[2022-08-05 14:11] LABS: HIV-1/2 Ag & Ab Screen Negative (Negative)
[2022-08-06 08:51] LABS: Hepatitis C Ab w Rflx HCV PCR Negative (Negative)
[2022-08-06 10:51] LABS: Hepatitis B Surface Ag Negative (Negative)
[2022-08-06 12:23] LABS: Varicella IgG Antibody Positive (See Note)
[2022-08-06 12:26] LABS: Rubella IgG Ab (UVM) Positive (See Note)
[2022-08-06 15:12] LABS: Syphilis IgG w/Reflex Nonreactive (Nonreactive)
[2022-08-14 10:28] LABS: Buprenorphine Negative ng/mL (Cutoff: 5.0); Norbuprenorphine Negative ng/mL (Cutoff: 2.5)
== END 2022-08-03 01:38 | disposition home or self-care (01) ==
LOC: LBO 01:37
PROVIDERS: Visit Provider Advanced Practice Midwife
DX: O30.001 Twin pregnancy, unspecified number of placenta and unspecified number of amniotic sacs, first trimester (principal)
CPT/HCPCS: 36415; 80307; 86787; 86803; 86850; 86900; 86901; 87340; 87389; 84443; 85025; 86762; 86780; 87086

== ENCOUNTER 2022-09-07 14:24 | Outpatient (REF) | payer OTHER, SELFPAY ==
[2022-09-09 14:40] LABS: Chlamydia Result Negative (Negative); GC Result Negative (Negative)
== END 2022-09-07 14:25 | disposition home or self-care (01) ==
LOC: LBN 14:24
PROVIDERS: Visit Provider Obstetrics & Gynecology Gynecology
DX: Z34.92 Encounter for supervision of normal pregnancy, unspecified, second trimester (principal)
CPT/HCPCS: 87491; 87591

== ENCOUNTER 2022-11-09 01:21 | Outpatient (CLI) | payer OTHER, SELFPAY ==
[2022-11-09 10:41] LABS: Abs Immature Grans 0.03 10^3/uL (0.0-0.06); Absolute Basophil Count 0.02 10^3/uL (0.0-0.2); Absolute Eosinophil Count 0.02 10^3/uL (0.0-0.7); Absolute Lymphocyte Count 1.32 10^3/uL (1.2-3.4); Absolute Monocyte Count 0.48 10^3/uL (0.1-0.8); Basophils % 0.2; Eosinophils % 0.2; HCT 36.7 % (36.0-46.0); HGB 13.5 g/dL (11.2-15.7); Immature Grans % 0.3; Lymphocytes % 14.2; MCH 34.6 pg (27.0-33.0); MCHC 36.8 % (32.0-36.0); MCV 94 fL (80-95); MPV 9.7 fL (8.0-11.0); Monocytes % 5.2; Neutrophils % 79.9; Platelet Count 202 10^3/uL (130-400); RDW-SD 43.8 fL; WBC 9.27 10^3/uL (4.4-10.8)
[2022-11-09 10:54] LABS: Glucose,1 Hr (Glucola) 152 mg/dL (80-140)
== END 2022-11-09 01:22 | disposition home or self-care (01) ==
LOC: LBO 01:21
PROVIDERS: Obstetrics & Gynecology; PCP Nurse Practitioner Family; Visit Provider Obstetrics & Gynecology
DX: O36.0120 Maternal care for anti-D [Rh] antibodies, second trimester, not applicable or unspecified (principal); O30.042 Twin pregnancy, dichorionic/diamniotic, second trimester; O35.EXX1 Maternal care for other (suspected) fetal abnormality and damage, fetal genitourinary anomalies, fetus 1; Z3A.24 24 weeks gestation of pregnancy
CPT/HCPCS: 36415; 82950; 85025

== ENCOUNTER 2022-11-23 02:40 | Outpatient (CLI) | payer OTHER, SELFPAY ==
[2022-11-23 12:57] LABS: Glucose 1 Hour 159 mg/dL
[2022-11-23 14:59] LABS: Glucose 3 Hour 112 mg/dL
== END 2022-11-23 02:41 | disposition home or self-care (01) ==
LOC: LBO 02:40
PROVIDERS: PCP Nurse Practitioner Family; Visit Provider Obstetrics & Gynecology
DX: O30.042 Twin pregnancy, dichorionic/diamniotic, second trimester (principal); O26.892 Other specified pregnancy related conditions, second trimester; R73.09 Other abnormal glucose; Z3A.26 26 weeks gestation of pregnancy
CPT/HCPCS: 36415; 82951

== ENCOUNTER 2023-01-04 01:10 | Outpatient (CLI) | payer OTHER, SELFPAY | END 2023-01-04 01:11 | disposition home or self-care (01) | LOC: LBO 01:10 | PROVIDERS: PCP Nurse Practitioner Family; Visit Provider Obstetrics & Gynecology | DX: O26.893 Other specified pregnancy related conditions, third trimester (principal); Z67.91 Unspecified blood type, Rh negative | CPT/HCPCS: 36415; 86850; 90384 ==

== ENCOUNTER 2023-01-08 07:24 | Outpatient (CLI) | payer OTHER, SELFPAY ==
[2023-01-08 12:14] VITALS: BP 122/79; PULSE 88; TEMP 36.8
[2023-01-08 12:21] VITALS: BP 128/79; PULSE 88
[2023-01-08 12:32] VITALS: BP 122/79; PULSE 95
--- NOTE | 2023-01-08 13:21 | W.OBNST ---
Date of service: 01/08/23 Time of Service: 13:21 NST Evaluation Reason for NST Reasons for Nonstress Test: MULTIPLE GESTATION Reason for NST Other: Twins, growth restriction Gestational Age Gestational Age in Weeks and Days: 33 Weeks and 3Days Test and Monitor Explained Test/Monitor Explained: Test Explained and Monitor Explained Vital Signs Blood Pressure: 122/79 Pulse: 88 Temperature: 98.2 F NST Information Date on Monitor: 01/08/23 Time on Monitor: 12:17 Date off Monitor: 01/08/23 Time off Monitor: 13:00 Total Time on Monitor: 43 NST Interventions: PO Hydration NST Evaluation Patient States Movement: Present FHR Baseline: 145 Variability: Moderate 6-25 bpm Accelerations: 15x15 Decelerations: None NST Results: Reactive NST Evaluation Baby B Patient States Movement: Present FHR Baseline: 140 Variability: Moderate 6-25 bpm Accelerations: 15x15 Decelerations: None NST Results: Reactive Note N/A NST Note Note: Patient seen today for nonstress testing due to gestational age, advanced maternal age, twin gestation, growth restriction. She has a reactive, category 1 strip for both twin a and B. There is moderate variability noted. We did discuss her ultrasound findings from Saturday and my recommendation would be for repeat ultrasound at [facility] in light of the fact that they did her last ultrasound approximately 4 weeks ago. Call was made to [facility] to expedite her ultrasound scheduling. NST Reviewed and Verified by: Patricia Carlisle
[2023-01-08 13:22] VITALS: BP 122/79; PULSE 88; TEMP 36.8
== END 2023-01-08 13:00 | disposition home or self-care (01) ==
LOC: BCD 07:26 → OBS 12:12
PROVIDERS: PCP Nurse Practitioner Family; Visit Provider Obstetrics & Gynecology
DX: O30.003 Twin pregnancy, unspecified number of placenta and unspecified number of amniotic sacs, third trimester (principal); O36.5930 Maternal care for other known or suspected poor fetal growth, third trimester, not applicable or unspecified; Z3A.33 33 weeks gestation of pregnancy
CPT/HCPCS: 59025

== ENCOUNTER 2023-01-11 07:46 | Outpatient (CLI) | payer OTHER, SELFPAY ==
[2023-01-11 12:36] VITALS: BP 122/85; PULSE 80; TEMP 36.5
[2023-01-11 12:38] VITALS: BP 122/85; PULSE 80
--- NOTE | 2023-01-11 18:08 | PDOC.NST_ITS ---
Date of service: 01/11/23 Time of Service: 18:08 NST Evaluation Reason for NST Reasons for Nonstress Test: MULTIPLE GESTATION Gestational Age Gestational Age in Weeks and Days: 33 Weeks and 6Days Test and Monitor Explained Test/Monitor Explained: Test Explained, Monitor Explained and Patient Verbalized Understanding Vital Signs Blood Pressure: 122/85 Pulse: 80 Temperature: 97.7 F Urine Results Urine Protein: Negative Urine Ketones: Negative Urine Glucose: Negative Urine Blood: Negative NST Information Date on Monitor: 01/11/23 Time on Monitor: 11:59 Date off Monitor: 01/11/23 Time off Monitor: 12:37 Total Time on Monitor: 38 NST Interventions: PO Hydration Contraction Frequency: 0 NST Evaluation Patient States Movement: Present FHR Baseline: 150 Variability: Moderate 6-25 bpm Accelerations: 15x15 Decelerations: None NST Results: Reactive NST Evaluation Baby B Patient States Movement: Present FHR Baseline: 145 Variability: Moderate 6-25 bpm Accelerations: 15x15 Decelerations: None NST Results: Reactive Note N/A NST Note Note: Category 1, Reactive NST baby A&B. BPP in DI 06/25 as well Has U/S at [facility] [place] [place] 01/14/2023 NST Reviewed and Verified by: Patricia Carlisle
[2023-01-11 18:09] VITALS: BP 122/85; PULSE 80; TEMP 36.5
== END 2023-01-11 12:45 | disposition home or self-care (01) ==
LOC: BCD 07:46 → OBS 12:05
PROVIDERS: PCP Nurse Practitioner Family; Visit Provider Obstetrics & Gynecology
DX: O30.003 Twin pregnancy, unspecified number of placenta and unspecified number of amniotic sacs, third trimester (principal); Z3A.33 33 weeks gestation of pregnancy
CPT/HCPCS: 59025

== ENCOUNTER 2023-01-15 08:02 | Outpatient (CLI) | payer OTHER, SELFPAY ==
[2023-01-15 12:18] VITALS: BP 125/77; PULSE 87; TEMP 36.8
[2023-01-15 12:48] VITALS: BP 125/77; PULSE 87
== END 2023-01-15 13:20 | disposition home or self-care (01) ==
LOC: BCD 08:02 → OBS 12:17
PROVIDERS: PCP Nurse Practitioner Family; Visit Provider Obstetrics & Gynecology Gynecology
DX: O30.003 Twin pregnancy, unspecified number of placenta and unspecified number of amniotic sacs, third trimester (principal)
CPT/HCPCS: 59025

== ENCOUNTER 2023-01-18 09:05 | Outpatient (CLI) | payer OTHER, SELFPAY ==
[2023-01-18 09:38] VITALS: BP 124/74; PULSE 88; TEMP 36.8
--- NOTE | 2023-01-18 10:01 | PDOC.NST_ITS ---
Date of service: 01/18/23 Time of Service: 10:01 NST Evaluation Reason for NST Reasons for Nonstress Test: OTHER, SEE COMMENT Reason for NST Other: Twins Gestational Age Gestational Age in Weeks and Days: 34 Weeks and 6Days Test and Monitor Explained Test/Monitor Explained: Test Explained, Monitor Explained and Patient Verbalized Understanding Vital Signs Blood Pressure: 124/74 Pulse: 88 Temperature: 98.2 F NST Information Time on Monitor: 09:01 Date off Monitor: 01/18/23 Time off Monitor: 09:38 NST Interventions: PO Hydration NST Evaluation Patient States Movement: Present FHR Baseline: 145 NST Results: Reactive NST Evaluation Baby B Patient States Movement: Present FHR Baseline: 165 Variability: Moderate 6-25 bpm Accelerations: 15x15 NST Results: Reactive Note Biophysical Profile Reason for Biophysical Profile: Other (Difficulty measuring heart rate secondary to movement.) Provider that performed the study: Kayley Randall Is this a repeat study?: No Amniotic Fluid: 2 Muscle Tone: 2 Body Movements: 2 Breathing Movements: 2 NST Results: Reactive Total Biophysical Profile Score: 10 Coding for Biophysical Profile w/NST: Incomplete Exam (I did not perform an GALLITO.) NST Note Note: Both twin A and twin B had reassuring monitoring. I obtained a bedside ultrasound on twin A to expedite the documentation of wellbeing. I discussed with the patient her plan for continued surveillance. She has [place] [facility] [place] for growth. She will have weekly Doppler studies and GALLITO check and diagnostic imaging. The plan at this time is to speak to pediatrics about patient's suitability for delivering at 37 weeks were she to have spontaneous labor or a planned delivery at 37 weeks estimated gestational age NST Reviewed and Verified by: Kayley ONEIL Pocus Exam Exam testing Date/Time of Exam: Date of exam: 01/18/2023 Time of exam: 10:01 am RAULITO Calculator Estimated Delivery Date Method Current WG Current Estimate 02/23/23 LMP (Certain) 34w 6d Other Estimates 02/25/23 Ultrasound #1 34w 4d 02/23/23 Ultrasound #2 34w 6d # 2 Other Comments: Twin A to the patient's left was difficult to monitor because of movement away from the external Doppler. I applied the transabdominal ultrasound identified twin and identified viable fetus in vertex presentation with breathing motion, gross and fine body movements. I did not save the documentation.
[2023-01-18 10:07] VITALS: BP 124/74; PULSE 88; TEMP 36.8
[2023-01-18 13:30] VITALS: BP 136/83; PULSE 90
== END 2023-01-18 09:45 | disposition home or self-care (01) ==
LOC: BCD 09:10 → OBS 09:12
PROVIDERS: PCP Nurse Practitioner Family; Visit Provider Obstetrics & Gynecology Gynecology
DX: O30.043 Twin pregnancy, dichorionic/diamniotic, third trimester (principal); Z3A.34 34 weeks gestation of pregnancy
CPT/HCPCS: 59025

== ENCOUNTER 2023-01-22 07:56 | Outpatient (CLI) | payer OTHER, SELFPAY ==
[2023-01-22 09:12] VITALS: BP 127/81; PULSE 86; TEMP 36.7
[2023-01-22 09:44] VITALS: BP 127/81; PULSE 86
--- NOTE | 2023-01-22 19:52 | PDOC.NST_ITS ---
Date of service: 01/22/23 Time of Service: 11:00 NST Evaluation Reason for NST Reasons for Nonstress Test: INTRA-UTERINE GROWTH RES and MULTIPLE GESTATION Gestational Age Gestational Age in Weeks and Days: 35 Weeks and 3Days Test and Monitor Explained Test/Monitor Explained: Test Explained, Monitor Explained and Patient Verbalized Understanding Vital Signs Blood Pressure: 127/81 Pulse: 86 Temperature: 98.1 F NST Information Date on Monitor: 01/22/23 Time on Monitor: 09:18 Date off Monitor: 01/22/23 Time off Monitor: 10:22 Total Time on Monitor: 64 NST Interventions: PO Hydration NST Evaluation Patient States Movement: Present FHR Baseline: 140 Variability: Moderate 6-25 bpm Accelerations: 15x15 Decelerations: None NST Results: Reactive NST Evaluation Baby B Patient States Movement: Present FHR Baseline: 140 Variability: Moderate 6-25 bpm Accelerations: 15x15 Decelerations: None NST Results: Reactive Note Biophysical Profile Reason for Biophysical Profile: Other (IUGR) Provider that performed the study: Kait Tello Amniotic Fluid: 2 Muscle Tone: 2 Body Movements: 2 Breathing Movements: 2 NST Results: Reactive Total Biophysical Profile Score: 10 Coding for Biophysical Profile w/NST: Completed Exam NST Note Note: Doppler done in DI - awaiting read on her sono. Has repeat NST fri and [place] [facility] NST Reviewed and Verified by: Kait Tello
[2023-01-22 19:53] VITALS: BP 127/81; PULSE 86; TEMP 36.7
== END 2023-01-22 12:25 | disposition home or self-care (01) ==
LOC: BCD 07:57 → OBS 09:10
PROVIDERS: PCP Nurse Practitioner Family; Visit Provider Obstetrics & Gynecology
DX: O30.043 Twin pregnancy, dichorionic/diamniotic, third trimester (principal); O36.5932 Maternal care for other known or suspected poor fetal growth, third trimester, fetus 2; Z3A.35 35 weeks gestation of pregnancy
CPT/HCPCS: 59025

== ENCOUNTER 2023-01-25 08:49 | Outpatient (CLI) | payer OTHER, SELFPAY ==
[2023-01-25 09:05] VITALS: BP 131/78; PULSE 99; TEMP 36.9
--- NOTE | 2023-01-25 12:49 | W.OBNST ---
Date of service: 01/25/23 Time of Service: 09:30 NST Evaluation Reason for NST Reasons for Nonstress Test: OTHER, SEE COMMENT Reason for NST Other: twins Gestational Age Gestational Age in Weeks and Days: 35 Weeks and 6Days Test and Monitor Explained Test/Monitor Explained: Test Explained, Monitor Explained and Patient Verbalized Understanding Vital Signs Blood Pressure: 131/78 Pulse: 99 Temperature: 98.4 F NST Information Date on Monitor: 01/25/23 Time on Monitor: 09:01 Date off Monitor: 01/25/23 Time off Monitor: 09:39 Total Time on Monitor: 38 NST Interventions: PO Hydration NST Evaluation Patient States Movement: Present FHR Baseline: 140 Variability: Moderate 6-25 bpm Accelerations: 15x15 Decelerations: None NST Results: Reactive NST Evaluation Baby B Patient States Movement: Present FHR Baseline: 135 Variability: Moderate 6-25 bpm Accelerations: 15x15 Decelerations: None NST Results: Reactive Note N/A NST Note NST Reviewed and Verified by: Kait Tello
[2023-01-25 13:05] VITALS: BP 131/78; PULSE 99; TEMP 36.9
== END 2023-01-25 09:49 | disposition home or self-care (01) ==
LOC: BCD 08:50 → OBS 08:56
PROVIDERS: PCP Nurse Practitioner Family; Visit Provider Obstetrics & Gynecology
DX: O30.043 Twin pregnancy, dichorionic/diamniotic, third trimester (principal); Z3A.35 35 weeks gestation of pregnancy
CPT/HCPCS: 59025

== ENCOUNTER 2023-01-29 08:53 | Outpatient (CLI) | payer OTHER, SELFPAY ==
[2023-01-29 09:11] VITALS: BP 119/86; PULSE 86; TEMP 36.8
[2023-01-29 09:40] VITALS: BP 119/86; PULSE 86
--- NOTE | 2023-01-29 10:19 | PDOC.NST_ITS ---
Date of service: 01/29/23 Time of Service: 10:19 NST Evaluation Reason for NST Reasons for Nonstress Test: MULTIPLE GESTATION Gestational Age Gestational Age in Weeks and Days: 36 Weeks and 3Days Test and Monitor Explained Test/Monitor Explained: Test Explained, Monitor Explained and Patient Verbalized Understanding Vital Signs Blood Pressure: 119/86 Pulse: 86 Temperature: 98.2 F NST Information Date on Monitor: 01/29/23 Time on Monitor: 09:00 Date off Monitor: 01/29/23 Time off Monitor: 10:07 Total Time on Monitor: 67 NST Interventions: PO Hydration NST Evaluation Patient States Movement: Present FHR Baseline: 145 Variability: Moderate 6-25 bpm Accelerations: 15x15 Decelerations: None NST Results: Reactive NST Evaluation Baby B Patient States Movement: Present FHR Baseline: 125 Variability: Moderate 6-25 bpm Accelerations: 15x15 Decelerations: None NST Results: Reactive Note N/A NST Note Note: Category 1, reactive nonstress test for both babies. No ultrasound performed. Patient has follow[facility]up with [facility] tomorrow for ultrasound for growth. Indication for delivery would be roughly 37 weeks. We did discuss the pros and cons of delivering here versus a tertiary care center. Delivery site will be determined based on ultrasound findings tomorrow. NST Reviewed and Verified by: Patricia Carlisle
[2023-01-29 10:20] VITALS: BP 119/86; PULSE 86; TEMP 36.8
== END 2023-01-29 10:05 | disposition home or self-care (01) ==
LOC: BCD 08:57 → OBS 09:10
PROVIDERS: PCP Nurse Practitioner Family; Visit Provider Obstetrics & Gynecology
DX: O30.043 Twin pregnancy, dichorionic/diamniotic, third trimester (principal); Z3A.36 36 weeks gestation of pregnancy
CPT/HCPCS: 59025

== ENCOUNTER 2023-04-04 06:14 | Day surgery (SDC) | payer OTHER, SELFPAY ==
[2023-04-04 06:27] VITALS: BP 127/86; PULSE 74; RESP 16; TEMP 36.4; O2SAT 100
--- NOTE | 2023-04-04 07:10 | W.ANESPRE ---
General Info Date of Service Date Performed: 04/04/23 Height: 5 ft 8 in Weight: 85.8 kg Body Mass Index (BMI): 28.8 Surgical Procedure: Operation Date: 04/04/23 07:40 Proposed Procedure Side Surgeon p D&C Suction Patricia Carlisle DO Meds Allergies and Home Medications Allergies Allergy/AdvReac Type Severity Reaction Status Date / Time No Known Allergies Allergy Verified 04/04/23 06:27 Home Medication Medication Instructions Recorded prenat.vits,bj,sds-umyw-wbhfq 1 tab PO DAILY 05/04/20 acetaminophen 325 mg capsule 650 mg PO Q4H PRN 01/04/23 venlafaxine 150 mg 150 mg PO DAILY #90 caps 01/29/23 capsule,extended release 24 hr Current Visit Medications: Current Medications Generic Name Dose Route Start Last Admin Trade Name Freq PRN Reason Stop Dose Admin Ringer's Solution 1,000 mls @ 125 mls/hr 04/04/23 06:04 IV 05/04/23 06:03 INFUSION ERINN Sodium Chloride 500 mls @ 0 mls/hr 04/04/23 06:05 Saline 500ml Bag IV 05/04/23 06:04 PRN PRN As Directed Doxycycline Hyclate 100 mg/ 100 mls @ 100 mls/hr 04/04/23 07:00 Sodium Chloride IVPB 04/04/23 16:00 PREOP ERINN IV Miscellaneous Supplies 1 each 04/04/23 06:05 Iv Access IV 05/04/23 06:04 DIRECTED ERINN Sodium Chloride 0 ml 04/04/23 06:05 Normal Saline Flush 10 Ml Syr IVP 05/04/23 06:04 PRN PRN PFSH Active Problems Active Problems: Problem Status Onset Code Thickened endometrium R93.89 Anxiety F41.9 Insomnia G47.00 Depression F32.A Rh negative state in antepartum period O26.899, Z67.91 Medical History Medical History Back pain growth restriction antepartum complicated by multicystic dysplastic kidney Twin A, and 2-vessel cord , twins Surgical History Surgical History History of Tobacco Smoking/Tobacco Use Status: Never Second hand exposure: Yes Alcohol Alcohol Intake: current Alcohol intake frequency: 0-2 drinks per day Alcohol type: beer Substance Use Substance use: Never Substance use type: does not use Prental History History 2 Para 3 Hx # Term Pregnancies 2 Multiple births 0 Hx # Pregnancies 0 Ectopic pregnancies 0 AB induced 0 Hx Number of Living Children 3 AB spontaneous 0 Past Pregnancies Del. Date GA/Weeks # Preg Succ Route Wgt Sex Labor Lgth Anesthesia Location Prov Complic 12/10/20 39 No Yes 3260.195 g Male 24 hrs regional [facility] [place] 02/01/23 34 Yes Yes [facility] [place] Delivery Date: 12/10/20 Last Updated by: Kallie Campbell IOL for postdates & low fluid, arrest of descent in 2nd stage, persistent ROP position, C/S, [place] Delivery Date: 02/01/23 Last Updated by: Tricia Rey RN male- 2168g female- 2190g Vital Signs and Lab Results Vital Signs Most Recent Vital Signs in EMR: Most Recent Vital Signs Temp Pulse Resp BP Pulse Ox 36.4 C L 74 16 127/86 100 04/04/23 06:27 04/04/23 06:27 04/04/23 06:27 04/04/23 06:27 04/04/23 06:27 Point of Care Results Point of Care Results: POC- Test(urine) Negative 04/04/23 06:41 Lab Results Blood Type / Crossmatch: No Data to Display Complete Blood Count: No Data to Display Complete Metabolic Panel: No Data to Display Liver Function Panel: No Data to Display Coagulation Panel: No Data to Display Cardiac Panel: No Data to Display Arterial Blood Gas: No Data to Display Venous Blood Gas: No Data to Display Pancreas Panel: No Data to Display Thyroid Panel: No Data to Display Infectious Disease: No Data to Display Blood Cultures: No Data to Display Toxicology Panel: No Data to Display Panel: No Data to Display Anesthesia Assessment and Plan Anesthesia History Personal History: No History of Anesthesia Complications Family History: No Family History of Anesthesia Complications Exercise Tolerance Exercise Tolerance: Metabolic Equivalents>4 Pertinent Negatives Pertinent Negatives: No Symptoms of GERD, No Major Cardiovascular Symptoms or Complaints, No Major Pulmonary Symptoms or Complaints and No History of CVA/TIA Cardiac & Pulmonary Exam Cardiac Exam: Normal S1/S2 Heart Sounds Pulmonary Exam: Clear Bilateral Breath Sounds Implantable Cardiac Device Does patient have a Pacemaker or an ICD?: No Airway Exam Known Difficult Airway: No Mallampati Class: 2 Mouth Opening: Normal (> 3cm) Thyromental Distance: Greater than 3 cm Neck Range of Motion: Full ROM Neck Circumference: Normal Teeth Condition: Normal Dentition ASA Classification ASA Score: ASA 2 Emergency Case?: No NPO Status NPO Status: NPO Clears >2 hours, Solids >8 hours Status Status: Negative HCG Anesthesia Plan Resuscitation Status: Full Code Anesthesia Technique: General Anesthesia Airway Planned: Natural Airway Monitors Used: Standard Monitors
[2023-04-04] MEDS: Lactated Ringers 1,000 ML 125 ML IV (07:11)
[2023-04-04 07:13] VITALS: BMI 28.8
[2023-04-04 07:30] LABS: Abs Immature Grans 0.01 10^3/uL (0.0-0.06); Absolute Basophil Count 0.02 10^3/uL (0.0-0.2); Absolute Eosinophil Count 0.14 10^3/uL (0.0-0.7); Absolute Lymphocyte Count 1.89 10^3/uL (1.2-3.4); Absolute Monocyte Count 0.46 10^3/uL (0.1-0.8); Absolute Neutrophil Count 2.99 10^3/uL (1.2-6.7); Basophils % 0.4; Eosinophils % 2.5; HCT 39.3 % (36.0-46.0); HGB 13.6 g/dL (11.2-15.7); Immature Grans % 0.2; Lymphocytes % 34.3; MCH 30.8 pg (27.0-33.0); MCHC 34.6 % (32.0-36.0); MCV 89 fL (80-95); MPV 9.7 fL (8.0-11.0); Monocytes % 8.3; Neutrophils % 54.3; Platelet Count 233 10^3/uL (130-400); RBC 4.41 10^6/uL (3.93-5.22); RDW 11.4 % (11.7-14.6); RDW-SD 37.6 fL; WBC 5.51 10^3/uL (4.4-10.8)
[2023-04-04] MEDS: DOXYCYCLINE 100 MG in Normal Saline 100 ML IVPB (07:36)
[2023-04-04] MEDS: Normal Saline 100 ML 360 ML (07:56)
[2023-04-04] MEDS: Tranexamic Acid 1,000 MG/10 ML VIAL 1000 MG (07:56)
--- NOTE | 2023-04-04 07:56 | POC_PTH ---
PATIENT: Sherry Dorsey LOC: [facility] U#:[id number] AGE/SX: 33/F ROOM: RE04/04/[address]: Patricia Carlisle DO : 1990 BED: DIS: 04/04/2023 SPEC #: [id number] RECD: 04/04/23 12:56 STATUS: MICH REQ #: [id number] DENISHA: 04/04/23 07:[address]: Patricia Carlisle DEPT: Surgical Specimen RECD BY: Dania Banerjee ENTERED: 04/04/23 12:57 SP TYPE: POC OTHR DR: Kwaku Reina DNP Tissues: 1 - INDUCED Procedures: GROSS AND MICRO LEVEL 4 Comments: [id number]
[2023-04-04 08:14] VITALS: BP 109/67; PULSE 63; RESP 16; TEMP 35.8; O2SAT 97
--- NOTE | 2023-04-04 08:14 | W.PM.OP ---
Date of service: 04/04/23 Time of Service: 08:14 Operative Note Operative Note DATE OF PROCEDURE: 04/04/23 PRE-OP DIAGNOSIS: 8 weeks . Continued bleeding. Suspect retained products. POST-OP DIAGNOSIS: same PROCEDURE: Dilation and curettage with suction SURGEON: Patricia Carlisle ANESTHESIA TYPE: General:No Airway Refer to Anesthesia Record ESTIMATED BLOOD LOSS: 50 PATHOLOGY: other (Uterine contents, products of conception) COMPLICATIONS: None Patient was transported to: same day Indications: Ongoing bleeding status post section. Suspected retained products with thickened endometrium Findings: Tissue returned with dilation and curettage. Procedure Description: After full informed consent was obtained, patient was taken the operating suite with an IV running. She was placed in the supine position and anesthesia administered. She was then placed in the modified dorsolithotomy position and prepped and draped in the usual sterile fashion. Exam under anesthesia revealed a uterus that was approximately 8 weeks size. Speculum was inserted into the vaginal vault and cervical os easily dilated. A 7 Macedonian curved suction curette was passed with gentle suction curettage performed. A second sharp curettage was performed until the coarse cry of the uterus could be felt in all 4 quadrants. Suction catheter was again passed to ensure the remainder of tissue had been removed. At this point Allis clamp that was on the cervix was removed and speculum was also removed. Uterine massage performed. Patient did receive 1 dose of TXA intraoperatively. Procedure her uterus is small, involuted, and hemostatic. Patient awoke from anesthesia without difficulty and was taken to the same-day surgical area in stable condition Complications: None apparent Pathology: Uterine contents, products of conception for examination EBL: 50 mL Fluids: Crystalloid per anesthesia.
[2023-04-04 08:41] VITALS: BP 109/81; PULSE 70; RESP 16; TEMP 36; O2SAT 98
--- NOTE | 2023-04-04 08:58 | W.ANESPOSTOP ---
Postoperative Evaluation Date, Time and Location Date Performed: 04/04/23 Time Performed: 08:54 Patient Location: Day Surgery Unit Vital Signs Most Recent Imported Vital Signs: Most Recent Vital Signs Temp Pulse Resp BP Pulse Ox 36 C L 70 16 109/81 98 04/04/23 08:41 04/04/23 08:41 04/04/23 08:41 04/04/23 08:41 04/04/23 08:41 Pain Score Most Recent Pain Score: Most Recent Pain Score Pain Level 0 04/04/23 08:41 Assessment Mental Status: Awake (Alert & Oriented to Patient Baseline) Airway and Respiratory Function: Patent airway with normal (patient baseline) respiratory exam Cardiovascular Function: Hemodynamically Stable Hydration Status: Adequately Hydrated Nausea & Vomiting: No Nausea or Vomiting Pain: Pt. Denies Any Pain Peripheral Nerve Block: Patient did not receive a nerve block
== END 2023-04-04 09:49 | disposition home or self-care (01) ==
PROVIDERS: PCP Nurse Practitioner Family; Visit Provider Obstetrics & Gynecology
PROC: (CPT 59841; principal; 2023-04-04 07:30)
DX: O72.2 Delayed and secondary postpartum hemorrhage (principal); O73.1 Retained portions of placenta and membranes, without hemorrhage
CPT/HCPCS: 59160; 36415; 81025; 86850; 86900; 86901; 88305; 85025; 88304; J1100; J1885; J2405

== ENCOUNTER 2023-06-21 10:08 | Outpatient (REF) | payer OTHER, SELFPAY | END 2023-06-21 10:09 | disposition home or self-care (01) | LOC: LBN 10:08 | PROVIDERS: PCP Nurse Practitioner Family; Visit Provider Nurse Practitioner Family | DX: L60.8 Other nail disorders; L08.89 Other specified local infections of the skin and subcutaneous tissue | CPT/HCPCS: 87077; 87070; 87186; 87205 ==

== ENCOUNTER 2025-07-23 05:28 | Outpatient (CLI) | payer OTHER, SELFPAY ==
--- NOTE | 2025-07-23 06:00 | DI.RAD_ITS ---
Exam(s) XR CLAVICLE RT EXAM: XR CLAVICLE RT CLINICAL HISTORY: reproducible x 3 days, RT CLAVICLE PAIN, M89.8X1 TECHNIQUE: 2D digital imaging was performed. Two views COMPARISON: No exams were available for comparison FINDINGS: BONES: No acute fracture is present. No bony destructive lesion is seen. JOINTS: No glenohumeral joint dislocation present. The AC joint is not widened. SOFT TISSUE: Normal IMPRESSION: Unremarkable radiographs of the right clavicle. DATA REPOSITORY: RADIATION DOSE DELIVERED:
== END 2025-07-23 05:48 ==
LOC: DI 05:28
PROVIDERS: PCP Nurse Practitioner Family; Visit Provider Nurse Practitioner Family
DX: M89.8X1 Other specified disorders of bone, shoulder (principal)
CPT/HCPCS: 73000